=== PATIENT | female | born 1975 | race Caucasian/White ===

== ENCOUNTER 2020-02-25 20:22 | Emergency (ER) | payer OTHER, SELFPAY ==
--- NOTE | ~2020-02-25 | XR_ITS ---
EXAMINATION: XR finger 2nd RT min 2V DATE: 02/25/2020 21:21 INDICATION: Right hand second digit laceration. TECHNIQUE: 3 views of right hand second digit were obtained. COMPARISON: None. FINDINGS: Bone alignment is normal. No fracture. Joint spaces are well maintained. IMPRESSION: 1. No fracture or radiopaque foreign body. Reviewed, dictated and finalized at location A.
[2020-02-25 20:23] VITALS: BP 114/64; PULSE 67; RESP 20; TEMP 36.3; O2SAT 99
--- NOTE | 2020-02-25 21:42 | ED.WOUNDLAC ---
HPI - Wound/Laceration General Chief Complaint: Wound/Laceration Stated Complaint: laceration Time Seen by Provider: 02/25/20 20:35 Source: patient Mode of arrival: ambulatory Limitations: no limitations History of Present Illness HPI narrative: This is a 45-year-old female that presents the emergency department for laceration to right second finger sustained just prior to arrival. Reports she cut it with an oscillating saw. Reports bleeding is under control. She is up to date on tetanus. Denies decreased ROM or numbness. Related Data Home Medications Medication Instructions Recorded Confirmed norethindrone (contraceptive) mg 02/25/20 Allergies Allergy/AdvReac Type Severity Reaction Status Date / Time cefaclor Allergy Unknown Unknown Verified 02/25/20 20:25 Review of Systems Review of Systems: Narrative: CONSTITUTIONAL: Denies fever SKIN: Reports laceration MUSCULOSKELETAL: Denies joint pain NEUROLOGIC: Denies numbness All systems reviewed & are unremarkable except as noted in HPI and below PMFSH Family History Family History (Updated 01/11/16 @ 23:19 by DOCTOR UNKNOWN) Father Family history of malignant neoplasm Mother Family history of malignant neoplasm of breast in first degree relative Other Family history of malignant neoplasm of breast Social History Social History Smoking status: Never smoker Alcohol intake: current Exam Narrative: Exam Narrative: GENERAL: Well-appearing, well-nourished, and in no acute distress. HEAD: Normocephalic, atraumatic. EYES: EOMI. EXTREMITIES: Normal range of motion. No edema. Right 2nd finger distal phalanx with 1cm superficial laceration with area of skin avulsion SKIN: Warm, dry, no rash. NEURO: No focal deficits. Alert and oriented x3. PSYCH: Normal mood and affect Course Vital Signs Vital signs: Vital Signs Temperature 97.3 F L 02/25/20 20:23 Pulse Rate 67 02/25/20 20:23 Respiratory Rate 02/25/20 20:23 Blood Pressure 114/64 02/25/20 20:23 Pulse Oximetry 99 02/25/20 20:23 Temperature 97.3 F L 02/25/20 20:23 Pulse Rate 67 02/25/20 20:23 Respiratory Rate 20 02/25/20 20:23 Blood Pressure 114/64 02/25/20 20:23 Pulse Oximetry 99 02/25/20 20:23 Procedures Laceration Laceration 1: Date: 02/25/20 Time: 22:00 Site: hand Side (If applicable): right Size (cm): 1 Description: linear Depth: simple, single layer Pre-repair: irrigated ====== Skin Level ====== ====== Subcutaneous Layer ====== ====== Muscle Layer ====== ====== Tendon Layer ====== Dressing: Superficial wound was irrigated and covered with a bandage MDM - Wound/Laceration MDM Narrative Medical decision making narrative: Patient presents the emergency department for laceration to right second finger sustained just prior to arrival. Laceration is superficial and has a portion of skin that has been avulsed. Patient's wound was irrigated and covered with a bandage. She was educated on wound care. Right second finger x-rays without acute findings. She is up-to-date on tetanus. Patient is to follow-up with primary care doctor. She was given warnings to return to the ER Imaging Data Radiologist's impression: ITS Impressions Finger X-Ray 02/25/20 21:25 IMPRESSION: 1. No fracture or radiopaque foreign body. Critical Care Time Critical Care Time Critical Care Time: No Discharge Plan Discharge Clinical Impression: Avulsion of skin Patient Disposition: Home, Self-Care Condition: Stable Instructions: Skin Avulsion (ED) Additional Instructions: Return to the emergency department if you experience fever, redness or swelling of your wound, abnormal drainage from your wound, or any other symptoms that are concerning to you. Apply antibiotic ointment daily. Do not soak the wound. Clean with mild soap and water daily Follow-up with moon
[2020-02-25 22:09] VITALS: BP 107/60; PULSE 58; RESP 16; TEMP 36.8; O2SAT 100
== END 2020-02-25 22:10 | disposition home or self-care (01) ==
PROVIDERS: Emergency Provider Emergency Medicine; PCP Family Medicine
DX: S61.201A Unspecified open wound of left index finger without damage to nail, initial encounter (principal); W29.8XXA Contact with other powered hand tools and household machinery, initial encounter
CPT/HCPCS: 73140; 99283

== ENCOUNTER 2020-03-24 23:13 | Emergency (ER) | payer OTHER, SELFPAY ==
--- NOTE | ~2020-03-24 | XR_ITS ---
XR foot RT min 3V 03/25/2020 00:29 INDICATION: Right foot pain after fall PROCEDURE: 4 views right foot COMPARISON: No prior studies for comparison. FINDINGS: Fracture, dislocation or subluxation is not identified. The soft tissues appear within norm al limits. No foreign bodies are identified. IMPRESSION: 1: NO ACUTE BONE OR JOINT ABNORMALITY IDENTIFIED. Reviewed, dictated and finalized at location A.
--- NOTE | ~2020-03-24 | XR_ITS ---
[[id number] ] INDICATION: Right rib pain after fall TECHNIQUE: Frontal projection of the upper right ribs, frontal projection of the lower right ribs, ob lique projection of all the right ribs, frontal inspiratory chest x-ray for interpretation. FINDINGS: There are no displaced rib fractures identified. There are no soft tissue abnormality see n. The lungs are clear. IMPRESSION: 1:No displaced rib fractures. Reviewed, dictated and finalized at location A.
[2020-03-24 23:16] VITALS: BP 109/71; PULSE 67; RESP 20; TEMP 36.7; O2SAT 100
--- NOTE | 2020-03-24 23:38 | ED.FALL ---
HPI - Fall General Chief Complaint: Fall Stated Complaint: fall Time Seen by Provider: 03/24/20 23:30 History of Present Illness HPI Narrative: She fell backwards off of a 2 step ladder and landed on her upper back. She reports severe pain in the top of the right foot. She also sustained a laceration to this foot. Additionally she has pain in the right upper back, especially with taking a deep breath. this pain is mild. Related Data Home Medications Medication Instructions Recorded Confirmed norethindrone (contraceptive) mg 02/25/20 Allergies Allergy/AdvReac Type Severity Reaction Status Date / Time cefaclor Allergy Unknown Unknown Verified 02/25/20 20:25 Review of Systems Review of Systems: All systems reviewed & are unremarkable except as noted in HPI and below Constitutional: Constitutional: Denies weakness Cardiovascular: Cardiovascular: Denies chest pain Respiratory: Respiratory: Denies dyspnea Gastrointestinal: Gastrointestinal: Denies abdominal pain and Denies nausea Neurologic: Denies headache(s), Denies numbness and Denies weakness PMF Family History Family History Father Family history of malignant neoplasm Mother Family history of malignant neoplasm of breast in first degree relative Other Family history of malignant neoplasm of breast Social History Social History Smoking status: Never smoker Alcohol intake: current Exam Const: General: healthy appearing, no acute distress and alert Orientation/consciousness: patient oriented x3 HENMT: Head: normal to inspection Chest: Chest palpation & inspection: tenderness rib (right lateral) Resp: Effort & Inspection: normal respiratory effort Auscultation: clear to auscultation bilaterally Cardio: Rate: regular rate Rhythm: regular rhythm Skin: Other: 4 cm laceration the dorsum of the right foot Neuro: General: patient oriented x3, moves all extremities, no focal motor deficits and CN's II-XI intact bilaterally Speech: normal speech Extrem: Other: right foot tenderness without deformity Course Vital Signs Vital signs: Vital Signs Temperature 36.7 C 03/24/20 23:16 Pulse Rate 67 03/24/20 23:16 Respiratory Rate 20 03/24/20 23:16 Blood Pressure 109/71 03/24/20 23:16 Pulse Oximetry 100 03/24/20 23:16 Temperature 36.8 C 03/25/20 02:27 Pulse Rate 83 03/25/20 02:27 Respiratory Rate 16 03/25/20 02:27 Blood Pressure 112/71 03/25/20 02:27 Pulse Oximetry 97 03/25/20 02:27 Procedures Laceration Laceration 1: Site: lower extremity (right foot) Size (cm): 4 Description: linear Depth: simple, single layer Local Anesthetic: lidocaine 1% and with epi Amount of anesthesia used (mL): 3 Pre-repair: wound explored and irrigated ====== Skin Level ====== Skin layer closed with: nylon Size (cm): 5-0 Number of sutures: 5 Technique: simple, interrupted ====== Subcutaneous Layer ====== ====== Muscle Layer ====== ====== Tendon Layer ====== MDM - Fall MDM Narrative Medical decision making narrative: No fracture on x-ray. laceration repaired. Medical Records Attestation: I reviewed the patient's medical records. Imaging Data Radiologist's impression: ITS Impressions Foot X-Ray 03/25/20 08:37 IMPRESSION: 1: NO ACUTE BONE OR JOINT ABNORMALITY IDENTIFIED. Ribs w/Chest X-Ray 03/25/20 08:50 IMPRESSION: 1:No displaced rib fractures. Discharge Plan Discharge Clinical Impression: Foot laceration Patient Disposition: Home, Self-Care Condition: Stable Instructions: Laceration (ED) Additional Instructions: Follow-up for suture removal in 10-14 days Prescriptions: No Action norethindrone (contraceptive) 0.35 mg tablet RF: 0 Follow-u
[2020-03-25] MEDS: HYDROcodone/acetaminophen (*CRX) 5-325 MG TABLET 1 TAB PO (00:08)
[2020-03-25 00:09] VITALS: BP 101/71; PULSE 75; RESP 16; O2SAT 100
[2020-03-25] MEDS: IBUPROFEN 600 MG TABLET PO (00:09)
[2020-03-25] MEDS: LIDO 1%/EPINEPHRINE 1:100,000 20 ML VIAL 4 ML INFILTRATE (01:13)
[2020-03-25 02:27] VITALS: BP 112/71; PULSE 83; RESP 16; TEMP 36.8; O2SAT 97
== END 2020-03-25 02:29 | disposition home or self-care (01) ==
PROVIDERS: Emergency Provider Emergency Medicine; PCP Family Medicine
DX: S91.311A Laceration without foreign body, right foot, initial encounter (principal); W11.XXXA Fall on and from ladder, initial encounter
CPT/HCPCS: 12002; 71101; 73630; 99284; A9270

== ENCOUNTER 2020-10-31 13:21 | Outpatient (CLI) | payer OTHER, SELFPAY ==
--- NOTE | ~2020-10-31 | MM_ITS ---
EXAMINATION: MM screening kira BI w liss HISTORY: Screening TECHNIQUE: Craniocaudal and mediolateral oblique 3-D tomosynthesis images were obtained and synthetic 2-D images were generated. CAD analysis was submitted and interpreted. COMPARISON: Comparison to multiple prior studies sequentially, with oldest reviewed study dated 03/16. BREAST PARENCHYMAL COMPOSITION: The breasts are heterogenously dense, which may obscure small masses. There are developing asymmetries in the subareolar location of both breasts on MLO views. FINDINGS: Developing bilateral breast asymmetries. There are no suspicious calcifications in either b reast. IMPRESSION: 1. Bilateral breast asymmetries. 2. Additional mammographic views and possible breast ultrasound are recommended. BI-RADS Category 0: Incomplete: Needs additional imaging evaluation. Reviewed, dictated and finalized at location A. IMPRESSION: 1. Bilateral breast asymmetries. 2. Additional mammographic views and possible breast ultrasound are recommended . BI-RADS Category 0: Incomplete: Needs additional imaging evaluation.
== END 2020-10-31 13:22 | disposition home or self-care (01) ==
LOC: ANHIMG 13:24
PROVIDERS: PCP Family Medicine; Visit Provider Family Medicine
DX: Z12.31 Encounter for screening mammogram for malignant neoplasm of breast (principal); R92.8 Other abnormal and inconclusive findings on diagnostic imaging of breast
CPT/HCPCS: 77063; 77067

== ENCOUNTER 2020-12-03 13:24 | Outpatient (CLI) | payer OTHER, SELFPAY ==
--- NOTE | ~2020-12-03 | MMUS_ITS ---
EXAMINATION: MM diagnostic mammo BI, US breast BI complete HISTORY: Bilateral breast asymmetries reported on 10/31/2020 screening mammogram TECHNIQUE: Additional 3-D tomosynthesis images of both breasts were performed and synthetic 2-D image s were generated. CAD analysis was submitted and interpreted. High resolution complete bilateral kate st ultrasound was performed. COMPARISON: 10/31/2020 bilateral digital screening mammogram FINDINGS: MAMMOGRAPHIC FINDINGS: No suspicious mass or architectural distortion, malignant calcification, skin thickening or retractio n is evident. The dense stroma may obscure masses. Complete bilateral breast ultrasound examination was performed. ULTRASOUND: No suspicious masses or shadowing of either breast is detected. Occasional cysts: Right breast: 8:00 near nipple: Circumscribed 3.4 x 6.8 x 4.4 mm cyst 10:00 near nipple: 3.7 mm x 4.4 mm cyst Left breast: 4:00 2 cm from nipple: 4 x 6 mm cyst IMPRESSION: 1. No mammographic evidence of malignancy 2. Routine mammographic screening is recommended BI-RADS Category 2: Benign finding(s). Reviewed, dictated and finalized at location A. IMPRESSION: 1. No mammographic evidence of malignancy 2. Routine mammographic screening is recommended BI-RADS Category 2: Benign finding(s).
== END 2020-12-03 13:25 | disposition home or self-care (01) ==
LOC: ANHIMG 13:29
PROVIDERS: PCP Family Medicine; Visit Provider Physician Assistant
DX: R92.8 Other abnormal and inconclusive findings on diagnostic imaging of breast (principal)
CPT/HCPCS: 76641; 77066

== ENCOUNTER → 2020-12-15 06:37 | Outpatient (CLI) | payer OTHER, SELFPAY ==
[2020-12-15 16:44] LABS: SARS-CoV-2 RNA PCR Negative
== END ==
PROVIDERS: PCP Family Medicine; Visit Provider Family Medicine
DX: R05 Cough (principal); R68.89 Other general symptoms and signs; Z20.822 Contact with and (suspected) exposure to COVID-19
CPT/HCPCS: C9803; U0003; U0005

== ENCOUNTER 2022-01-27 00:45 | Day surgery (SDC) | payer OTHER, SELFPAY ==
[2022-01-15 10:57] VITALS: BMI 25.6
--- NOTE | 2022-01-26 10:29 | PM.HPGS ---
History of Present Illness History of Present Illness Consent: Risks, benefits, and alternatives have been discussed and questions answered. Patient agrees to proceed with procedure. Chief complaint: neoplasm screening Narrative: Lidia Sanchez is a 46 year old female Who was referred for colon cancer screening. This is her 1st colonoscopy. She has no family history of colorectal malignancy. Review of Systems Review of Systems: All systems reviewed & are unremarkable except as noted in HPI and below PMFSH Family History Family History Father Family history of malignant neoplasm Mother Family history of malignant neoplasm of breast in first degree relative Other Family history of malignant neoplasm of breast Social History Social History Smoking status: Never smoker Alcohol intake: current Substance use: never Substance use type: does not use Living arrangements: with family Gender identity (if verbalized by the patient): Female Spiritual care concerns: No Meds Home Medications and Allergies Home Medications Medication Instructions Recorded Confirmed Type norethindrone (contraceptive) 0.35 0.35 mg PO DAILY 02/25/20 01/27/22 History mg tablet cholecalciferol (vitamin D3) 1,250 1,250 mcg PO WEEKLY #1 tablet 11/20/21 01/27/22 Rx mcg (50,000 unit) tablet valacyclovir 500 mg tablet 500 mg PO DAILY #90 tabs 11/20/21 01/27/22 Rx (Valtrex) norethindrone (contraceptive) 0.35 0.35 mg PO DAILY 01/15/22 01/27/22 History mg tablet (Noris-BE) Allergies Allergy/AdvReac Type Severity Reaction Status Date / Time cefaclor Allergy Unknown Unknown Verified 01/27/22 08:56 Exam Const: General: alert Orientation/consciousness: patient oriented x3 Resp: Auscultation: clear to auscultation bilaterally Cardio: Rhythm: regular rhythm GI: GI Palp: Yes Soft to palpation and No Tenderness to palpation present (GI) Neuro: General: patient oriented x3 Assessment and Plan Assessment and plan (1) Colon cancer screening: Code(s): Z12.11 - Encounter for screening for malignant neoplasm of colon Status: Acute Assessment and Plan: Colonoscopy with possible biopsy or polypectomy or cautery or injection of substances.
--- NOTE | 2022-01-27 08:19 | WPDANESEPPF ---
Anes - Initial Pre Proc Eval Procedure: Operation Date: 01/27/22 10:00 Proposed Procedures p Screening Colonoscopy - Cristi Smith MD Date/Time: 01/27/22 08:19 Surgeon: Cristi Smith MD Pre Op Diagnosis: neoplasm screening Patient Data Age: 46 Gender: F Height: 1.57 m Weight: 63.5 kg Allergies Allergy/AdvReac Type Severity Reaction Status Date / Time cefaclor Allergy Unknown Unknown Verified 01/27/22 08:56 Home Medications Medication Instructions Recorded Confirmed Type norethindrone (contraceptive) 0.35 0.35 mg PO DAILY 02/25/20 01/27/22 History mg tablet cholecalciferol (vitamin D3) 1,250 1,250 mcg PO WEEKLY #1 tablet 11/20/21 01/27/22 Rx mcg (50,000 unit) tablet valacyclovir 500 mg tablet 500 mg PO DAILY #90 tabs 11/20/21 01/27/22 Rx (Valtrex) norethindrone (contraceptive) 0.35 0.35 mg PO DAILY 01/15/22 01/27/22 History mg tablet (Noris-BE) Patient hx anesthesia problems: none Family hx anesthesia problems: none Results Review: All pre-operative results and documents have been reviewed as part of the pre-operative evaluation. [facility] Family History Family History Father Family history of malignant neoplasm Mother Family history of malignant neoplasm of breast in first degree relative Other Family history of malignant neoplasm of breast Social History Social History Smoking status: Never smoker Alcohol intake: current Substance use: never Substance use type: does not use Living arrangements: with family Gender identity (if verbalized by the patient): Female Spiritual care concerns: No Anes - Eval Final PreProcedure Day of Procedure 01/27/22 08:19 Patient weight: overweight Heart: regular rate and rhythm Lungs: clear to auscultation Airway: Mallampati scale class II Neurological: alert and oriented Last oral intake: >/= 8 hours ASA classification: I Emergent: no Anesthetic plan: proceed Anesthesia type and monitoring: general GIVS and standard monitoring Results Review: All pre-operative results and documents have been reviewed as part of the pre-operative evaluation. Informed Consent: The patient's anesthetic plan and its attendant risks and benefits were discussed with the patient/family/POA. Questions were solicited and answers provided to the satisfaction of the patient/family/POA.
[2022-01-27 08:48] VITALS: BP 99/55; PULSE 58; RESP 16; TEMP 36.6; O2SAT 100; BMI 25.4
[2022-01-27] MEDS: LACTATED RINGERS 1,000 ML 150 ML IV CONT (09:06)
[2022-01-27] MEDS: SIMETHICONE ORAL SUSPENSION 20 MG/0.3 ML 30 ML BOTTLE 0.6 ML IRRIGATION (09:49)
[2022-01-27 09:58] VITALS: BP 95/57; PULSE 67; RESP 17; O2SAT 99
[2022-01-27 10:08] VITALS: BP 85/55; PULSE 65; RESP 18; O2SAT 100
[2022-01-27 10:18] VITALS: BP 96/55; PULSE 61; RESP 19; O2SAT 100
== END 2022-01-27 10:31 | disposition home or self-care (01) ==
PROVIDERS: PCP Family Medicine; Visit Provider Internal Medicine Gastroenterology
PROC: 0DJD8ZZ Inspection of Lower Intestinal Tract, Via Natural or Artificial Opening Endoscopic (ICD-10-PCS; CPT 45378; principal; 2022-01-27 10:00)
DX: Z12.11 Encounter for screening for malignant neoplasm of colon (principal)
CPT/HCPCS: 45378; J2704; J7120

== ENCOUNTER 2022-03-05 07:57 | Outpatient (CLI) | payer OTHER, SELFPAY ==
--- NOTE | ~2022-03-05 | MM_ITS ---
EXAMINATION: MM screening ikra BI w liss HISTORY: Screening mammogram, family history of breast cancer in her mother. TECHNIQUE: Craniocaudal and mediolateral oblique 3-D tomosynthesis images were obtained and synthetic 2-D images were generated. CAD analysis was submitted and interpreted. COMPARISON: 12/03/2020, 10/31/2020, 09/21/2017 BREAST PARENCHYMAL COMPOSITION: The breasts are heterogeneously dense, which may obscure small masses . FINDINGS: There is no suspicious mass, calcification, or architectural distortion to suggest malignan cy in either breast. There has been no suspicious interval change. IMPRESSION: 1. No mammographic evidence of malignancy. 2. Recommend routine screening mammography in one year. BI-RADS Category 1: Negative Reviewed, dictated and finalized at location A.
== END 2022-03-05 07:58 | disposition home or self-care (01) ==
PROVIDERS: PCP Family Medicine; Visit Provider Family Medicine
DX: Z12.31 Encounter for screening mammogram for malignant neoplasm of breast (principal)
CPT/HCPCS: 77063; 77067

== ENCOUNTER 2023-08-31 08:03 | Outpatient (CLI) | payer OTHER, SELFPAY ==
--- NOTE | ~2023-08-31 | MM_ITS ---
EXAMINATION: MM screening kira BI w liss HISTORY: Screening TECHNIQUE: Craniocaudal and mediolateral oblique 3-D tomosynthesis images were obtained and synthetic 2-D images were generated. CAD analysis was submitted and interpreted. COMPARISON: Comparison to multiple prior studies sequentially, with oldest reviewed study dated 07/2014. BREAST PARENCHYMAL COMPOSITION: Dense: The breasts are heterogeneously dense, which may obscure small masses FINDINGS: There is no evidence of suspicious mass, calcification, or architectural distortion to sugg est malignancy in either breast. There has been no suspicious interval change. IMPRESSION: 1. No mammographic evidence of malignancy. 2. Recommend routine screening mammography in one year. BI-RADS Category 1: Negative Reviewed, dictated and finalized at location A.
== END 2023-08-31 08:04 | disposition home or self-care (01) ==
PROVIDERS: PCP Family Medicine; Visit Provider Nurse Practitioner
DX: Z12.31 Encounter for screening mammogram for malignant neoplasm of breast (principal)
CPT/HCPCS: 77063; 77067

== ENCOUNTER 2023-11-13 08:16 | Emergency (ER) | payer OTHER, SELFPAY ==
[2023-11-13 08:27] VITALS: BP 120/80; PULSE 71; RESP 16; TEMP 36.6; O2SAT 100
--- NOTE | 2023-11-13 08:40 | ED.EXTPRO ---
HPI - Extremity Problem General Chief complaint: Neck Pain/Injury Stated complaint: Neck Pain Time Seen by Provider: 11/13/23 08:34 Source: patient and RN notes reviewed Mode of arrival: ambulatory Limitations: no limitations History of Present Illness HPI Narrative: Patient presents today with a 4 to five-day history of left-sided neck pain that has been worse over the last 2 days. Pain started after she had been on vacation for a while and came back and resumed her workouts at the gym. Denies numbness or tingling in the arm or hand. Denies radiation of the pain. She currently rates her pain 7/10. She has tried Tylenol, ibuprofen, [id number] lidocaine patches, and heating pad without much relief. Pain increases with movement of the neck Related Data Home Medications Medication Instructions Recorded Confirmed norethindrone (contraceptive) 0.35 0.35 mg PO DAILY 01/15/22 11/13/23 mg tablet (Noris-BE) Allergies Allergy/AdvReac Type Severity Reaction Status Date / Time cefaclor Allergy Unknown Unknown Verified 11/13/23 08:35 Review of Systems Review of Systems: CONSTITUTIONAL: Denies body aches, fever, chills, or sweats. EYES: Denies visual changes, redness, or discharge. ENT: Denies rhinorrhea, congestion, sore throat, or otalgia. CARDIOVASCULAR: Denies chest pain, palpitations, or edema. RESPIRATORY: Denies cough or dyspnea. GASTROINTESTINAL: Denies abdominal pain, nausea, vomiting, or diarrhea. GENITOURINARY: Denies dysuria or hematuria. SKIN: Denies rash, itching, or wounds. MUSCULOSKELETAL: Left-sided neck pain NEUROLOGIC: Denies headache, numbness, tingling, or weakness. PSYCH: Denies depression or anxiety. [facility] Family History Family History Father Family history of malignant neoplasm Mother Family history of malignant neoplasm of breast in first degree relative Other Family history of malignant neoplasm of breast Social History Social History Smoking status: Never smoker Alcohol intake: current Substance use: never Substance use type: does not use Living arrangements: with family Gender identity (if verbalized by the patient): Female Spiritual care concerns: No Comments At time of signature, I have reviewed and agree with nursing past medical, surgical, social and family history unless otherwise noted. Please see nursing chart for further information. There is no relevant family history pertinent to the presenting complaint Exam Narrative: GENERAL: Well-appearing, well-nourished, and in mild pain distress. HEAD: Normocephalic, atraumatic. EYES: EOMI. No redness or drainage. Conjunctivae normal. ENT: Mucous membranes pink and moist. NECK: Pain with active right lateral flexion, right rotation, flexion and extension. Tenderness to the left superior trapezius area with palpation. Very mild tenderness to the left cervical paraspinal muscles. This does not extend downward to the inferior trapezius area or outward to the lateral shoulder. Distal sensation intact. Capillary refill normal. Radial pulse normal. Hand application developer equal and strong. Full range of motion of the shoulder with increased pain around 90?. CHEST: No respiratory distress. EXTREMITIES: Normal range of motion. No edema. SKIN: Warm, dry, no rash. Capillary refill normal. Normal skin turgor. NEURO: No focal deficits. Alert and oriented x3. Gait steady. PSYCH: Normal affect. No signs of depression or anxiety. Course Course Level of Care: Express Care Visit Vital Signs Vital signs: Vital Signs Temperature 98 F 11/13/23 08:27 Pulse Rate 71 11/13/23 08:27 Respiratory Rate 16 11/13/23 08:27 Blood Pressure 120/80 11/13/23 08:27 Pulse Oximetry 100 11/13/23 08:27 Oxygen Delivery Room Air 11/13/23 08:27 Temperature 98 F 11/13/23 08:27 Pulse Rate
== END 2023-11-13 08:49 | disposition home or self-care (01) ==
PROVIDERS: Emergency Provider Nurse Practitioner; PCP Family Medicine
DX: S46.812A Strain of other muscles, fascia and tendons at shoulder and upper arm level, left arm, initial encounter (principal); X58.XXXA Exposure to other specified factors, initial encounter
CPT/HCPCS: 99213; G0463

== ENCOUNTER 2024-03-18 19:45 | Emergency (ER) | payer OTHER, SELFPAY ==
--- NOTE | 2024-03-18 19:58 | ED.URI ---
HPI - URI/Sore Throat General Chief Complaint: Upper Respiratory Infection Stated Complaint: covid + home test Time Seen by Provider: 03/18/24 19:58 Source: patient, RN notes reviewed and old records reviewed Mode of arrival: ambulatory Limitations: no limitations History of Present Illness HPI Narrative: Patient presents with complaints of fever, headache, cough, nasal congestion, sore throat. Reports positive COVID test at home. has been taking Tylenol with poor relief. No shortness of breath. Symptoms began yesterday, positive test was today. She is in no distress, including respiratory distress Related Data Home Medications Medication Instructions Recorded Confirmed norethindrone (contraceptive) 0.35 0.35 mg PO DAILY 01/15/22 03/18/24 mg tablet (Noris-BE) valacyclovir 500 mg tablet 500 mg PO PRN PRN Cold Sores 03/18/24 03/18/24 (Valtrex) Allergies Allergy/AdvReac Type Severity Reaction Status Date / Time cefaclor Allergy Unknown Unknown Verified 03/18/24 19:58 Review of Systems Review of Systems: All systems reviewed & are unremarkable except as noted in HPI and below Constitutional: Constitutional: Reports as per HPI, Reports no additional constitutional complaints, Reports body ache(s), Reports chills, Reports fever(s), Reports headache(s) and Reports lethargy ENT: Reports system reviewed and no additional complaints, except as documented, Reports nasal congestion, Reports nasal discharge, Reports nasal obstruction and Reports sore throat Cardiovascular: Cardiovascular: Reports no additional cardiovascular complaints Respiratory: Respiratory: Reports no additional respiratory complaints and Reports cough Gastrointestinal: Gastrointestinal: Reports no additional gastrointestinal complaints [facility] Family History Family History Father Family history of malignant neoplasm Mother Family history of malignant neoplasm of breast in first degree relative Other Family history of malignant neoplasm of breast Social History Social History Smoking status: Never smoker Alcohol intake: current Substance use: never Substance use type: does not use Living arrangements: with family Gender identity (if verbalized by the patient): Female Spiritual care concerns: No Exam Const: General: cooperative, no acute distress, alert and awake Orientation/consciousness: oriented to person, oriented to place and oriented to time HENMT: Head: normal to inspection Ears: TM's normal bilaterally Mouth: Yes moist mucous membranes Throat: posterior oropharynx abnormal erythema and postnasal drainage Resp: Effort & Inspection: normal respiratory effort and able to speak in complete sentences Auscultation: clear to auscultation bilaterally, no crackles, no rales, no rhonchi and no wheezes Cardio: Palpation: normal PMI Rate: regular rate Rhythm: regular rhythm Heart sounds: S1 normal heart sound present and S2 normal heart sound present Neuro: General: oriented to person, oriented to place and oriented to time Cranial nerves: Yes CN's II-XII intact bilaterally Psych: Appearance: grossly normal Thought process: Normal thought process present Insight: Good insight present (Psych) Judgement: Good judgement present (Psych) Course Course Level of Care: Express Care Visit Vital Signs Vital signs: Vital Signs Temperature 97.8 F 03/18/24 20:01 Pulse Rate 91 03/18/24 20:01 Respiratory Rate 16 03/18/24 20:01 Blood Pressure 101/86 03/18/24 20:01 Pulse Oximetry 98 03/18/24 20:01 Temperature 97.8 F 03/18/24 20:01 Pulse Rate 91 03/18/24 20:01 Respiratory Rate 16 03/18/24 20:01 Blood Pressure 101/86 03/18/24 20:01 Pulse Oximetry 98 03/18/24 20:01 MDM - URI/Sore Throat MDM Narrative Medical decision making narrative: patient reports positive home johan siu
[2024-03-18 20:01] VITALS: BP 101/86; PULSE 91; RESP 16; TEMP 36.6; O2SAT 98
== END 2024-03-18 20:12 | disposition home or self-care (01) ==
PROVIDERS: Emergency Provider Nurse Practitioner Family; PCP Family Medicine
DX: U07.1 COVID-19 (principal)
CPT/HCPCS: 99211; G0463

== ENCOUNTER 2024-12-12 10:18 | Outpatient (CLI) | payer OTHER, SELFPAY ==
--- NOTE | ~2024-12-12 | MM_ITS ---
EXAMINATION: MM screening mammo BI HISTORY: Screening mammogram, family history of breast cancer in her mother. TECHNIQUE: Craniocaudal and mediolateral oblique 3-D tomosynthesis images were obtained and synthetic 2-D images were generated. CAD analysis was submitted and interpreted. COMPARISON: 08/31/2023, 03/05/2022, 12/03/2020 BREAST PARENCHYMAL COMPOSITION:Dense: The breasts are heterogeneously dense, which may obscure small masses. FINDINGS: No suspicious mass, calcification, or architectural distortion are identified in either neda ast to suggest malignancy. There has been no suspicious interval change. IMPRESSION: No mammographic evidence of malignancy. Recommend routine screening mammography in one year. BI-RADS Category 1: Negative Reviewed, dictated and finalized at location .
== END 2024-12-12 10:19 | disposition home or self-care (01) ==
PROVIDERS: PCP Family Medicine; Visit Provider Family Medicine
DX: Z12.31 Encounter for screening mammogram for malignant neoplasm of breast (principal); Z80.3 Family history of malignant neoplasm of breast
CPT/HCPCS: 77067

== ENCOUNTER 2025-02-17 14:02 | Outpatient (CLI) | payer OTHER, SELFPAY ==
--- NOTE | ~2025-02-17 | CT_ITS ---
EXAM: CT abdomen pelvis wo con - 02/17/2025 14:10 CDT History: 50 years old Female with N20.0 - Calculus of kidney TECHNIQUE: Multidetector CT of the abdomen and pelvis without contrast. Coronal and sagittal reformats were also provided for review. Automatic exposure control was used for this study. COMPARISON: None Available. FINDINGS: Evaluation of bowel, vasculature, solid and hollow viscera is limited in the absence of oral and IV contrast. VISUALIZED CHEST: Visualized lungs are clear. ABDOMEN and PELVIS: LIVER: Within normal limits. GALLBLADDER: No calcified gallstones. BILE DUCTS: No dilatation. SPLEEN: Within normal limits. PANCREAS: Within normal limits. ADRENAL GLANDS: Within normal limits. KIDNEYS and URETERS: 2 mm calculus in the lower pole of the left kidney. 5 mm calculus in the left ureterovesical junction causing mild hydroureter and mild hydronephrosis. No right hydroureteronephrosis. URINARY BLADDER: Mild diffuse thickening of the urinary bladder wall. STOMACH and BOWEL: No abnormal bowel wall thickening. No obstruction. REPRODUCTIVE ORGANS: Within normal limits. MESENTERY/PERITONEAL CAVITY: No free fluid or pneumoperitoneum. LYMPH NODES: No abdominal or pelvic lymphadenopathy. ABDOMINAL WALL: Within normal limits. VASCULATURE: Within normal limits. MUSCULOSKELETAL: Multilevel degenerative changes of the spine. Small fat- containing umbilical hernia. IMPRESSION: 1. 5 mm calculus in the left ureterovesical junction causing mild hydroureter and mild hydronephrosis. 2. Diffuse wall thickening of the urinary bladder. Correlate with urinalysis to rule out possible UTI. Reviewed, dictated and finalized at location N. IMPRESSION: 1. 5 mm calculus in the left ureterovesical junction causing mild hydroureter and mild hydronephrosis. 2. Diffuse wall thickening of the urinary bladder. Correlate with urinalysis t o rule out possible UTI.
== END 2025-02-17 14:03 | disposition home or self-care (01) ==
LOC: GOSHIMG 14:03
PROVIDERS: PCP Family Medicine; Visit Provider Student in an Organized Health Care Education/Training Program
DX: N20.2 Calculus of kidney with calculus of ureter (principal)
CPT/HCPCS: 74176

== ENCOUNTER 2025-03-20 09:53 | Outpatient (CLI) | payer OTHER, SELFPAY ==
--- NOTE | ~2025-03-20 | US_ITS ---
EXAMINATION: US renal BI, 03/20/2025 10:00 CDT HISTORY: N20.1 - Calculus of ureter Comparison: None Technique: Torres-scale and color Doppler images were obtained. Findings: KIDNEYS: The renal cortices are intact with no solid masses or cysts, no hydronephrosis. Right Kidney: Right kidney 9 x 4.3 x 4.8 cm. Left Kidney: Left kidney midpole renal calculus 7 x 6 mm, no hydronephrosis. Left kidney 10.7 x 4.6 x 5.5 cm. Bladder: The bladder is unremarkable. . Impression: 1. Left renal calculus. No hydronephrosis Reviewed, dictated and finalized at location P. Impression: 1. Left renal calculus. No hydronephrosis
== END 2025-03-20 09:54 | disposition home or self-care (01) ==
LOC: GOSHIMG 09:54
PROVIDERS: PCP Family Medicine; Visit Provider Family Medicine
DX: Z00.01 Encounter for general adult medical examination with abnormal findings (principal); N20.0 Calculus of kidney; N95.1 Menopausal and female climacteric states
CPT/HCPCS: 76770